=== PATIENT | male | born 1950 | race Caucasian/White ===

== ENCOUNTER 2023-04-15 21:30 | Inpatient (IN) | payer OTHER, MEDICARE ==
[~2023-04-15] VITALS: Ht 177.8 cm; Wt 70.5 kg
[2023-04-15] MEDS ORDERED: diltiazem 5mg/ml 5ml inj. IV ONE ×3 (21:48→21:50)
[2023-04-15] MEDS ORDERED: aspirin 81mg tab.chew PO ONE (21:50)
--- NOTE | 2023-04-15 22:10 | NUR ---
pt recieved 500mls ns from ems. ok per dr schaffer.
[2023-04-15 22:19] LABS: BASOPHILS % (AUTO) 0.5 % (0-1); EOSINOPHILS % (AUTO) 0.2 % (0-6); HEMATOCRIT 49.3 % (42.0-52.0); HEMOGLOBIN 15.9 g/dl (14.0-17.9); LYMPHOCYTES # (AUTO) 1.1 X10'3 (1.1-4.8); LYMPHOCYTES % (AUTO) 13.5 % (21-51); MEAN CORPUSCULAR HEMOGLOBIN 30.2 PG (27.0-31.0); MEAN CORPUSCULAR HGB CONC 32.2 g/dL (33.0-36.5); MEAN CORPUSCULAR VOLUME 93.9 FL (78-98); MEAN PLATELET VOLUME 10.5 FL (7.4-10.4); MONOCYTES # (AUTO) 0.8 X10'3 (0-0.9); MONOCYTES % (AUTO) 10.8 % (2-12); NEUTROPHILS # (AUTO) 5.9 X10'3 (1.8-7.7); PLATELET COUNT 118 X10'3 (140-440); RED BLOOD COUNT 5.25 X10'6 (4.70-6.10); RED CELL DISTRIBUTION WIDTH 14.8 % (11.5-14.5); WHITE BLOOD COUNT 7.8 X10'3 (4.5-11.0)
[2023-04-15 22:29] LABS: D-DIMER 11.03 MG/L FEU (0-0.50)
[2023-04-15 22:35] LABS: ALANINE AMINOTRANSFERASE 344 U/L (12-78); ALBUMIN 3.4 G/DL (3.4-5.0); ALBUMIN/GLOBULIN RATIO 1.2 (1.1-1.5); ALKALINE PHOSPHATASE 313 IU/L (46-116); ANION GAP 16 (8-16); ASPARTATE AMINO TRANSFERASE 284 U/L (10-37); BILIRUBIN,TOTAL 2.7 MG/DL (0.1-1.0); BLOOD UREA NITROGEN 33 MG/DL (7-18); BUN/CREATININE RATIO 16.8 (10.0-20.0); CALCIUM 8.9 MG/DL (8.5-10.1); CHLORIDE 105 MMOL/L (99-107); CREATININE 1.97 MG/DL (0.60-1.10); GLUCOSE 109 MG/DL (70-104); MAGNESIUM 2.1 MG/DL (1.5-2.4); POTASSIUM 4.3 MMOL/L (3.5-5.1); SODIUM 144 MMOL/L (135-145); TOTAL CARBON DIOXIDE 23.5 MMOL/L (24-32); TOTAL PROTEIN 6.3 G/DL (6.4-8.2); eGFR 33 ML/MIN
[2023-04-15] MEDS ORDERED: heparin 10,000 units/1 ML INJ IV ONE (22:55)
[2023-04-15] MEDS ORDERED: heparin 10,000 units/1 ML INJ IV PRN (23:00)
[2023-04-15] MEDS: heparin 25,000 UNIT/250ml bag 250 ML IV PRN (23:32)
[2023-04-15 23:54] LABS: ANISOCYTOSIS FEW; PLATELET ESTIMATE DECREASED; SCHISTOCYTES 1+
[2023-04-15 23:56] LABS: POLYCHROMASIA FEW
[2023-04-15 23:58] LABS: BURR CELLS 1+
[2023-04-16] VITALS (12 sets, daily range): BP systolic 84–125; BP diastolic 51–85
[2023-04-16] MEDS ORDERED: diphenhydrAMINE 50 mg/ml inj IV PRN (00:05)
[2023-04-16] MEDS ORDERED: acetaminophen 650mg rectal suppository RC PRN (00:05)
[2023-04-16] MEDS ORDERED: ondansetron/PF 4mg/2ml inj IV PRN (00:05)
[2023-04-16] MEDS ORDERED: ipratropium/albuterol 3ml nebule NEB PRN (00:05)
[2023-04-16] MEDS ORDERED: bisacodyl 10mg suppository rectal RC PRN (00:05)
[2023-04-16] MEDS ORDERED: magnesium hydroxide 30ml (MOM) UD suspension PO PRN (00:05)
[2023-04-16] MEDS ORDERED: diphenhydrAMINE 25mg capsule PO PRN (00:05)
[2023-04-16] MEDS ORDERED: acetaminophen 325mg tablet PO PRN ×2 (00:05)
[2023-04-16] MEDS ORDERED: mag hydrox/Alum hydrox/simeth 30ml oral suspension PO PRN (00:05)
[2023-04-16] MEDS ORDERED: ondansetron 4mg rapidly disintigrating tab PO PRN (00:05)
[2023-04-16] MEDS ORDERED: morphine 2 MG/ML inj. syringe IV PRN (00:05)
[2023-04-16] MEDS ORDERED: diltiazem-NS 100mg/100ml 100 ML IV SCH (00:20)
[2023-04-16] MEDS: normal saline 1000ml 1,000 ML IV SCH ×2 (00:37→12:54)
[2023-04-16] MEDS ORDERED: ATOR-2 PO (00:46)
[2023-04-16] MEDS ORDERED: TRAZ150T78 PO (00:46)
[2023-04-16] MEDS ORDERED: ASPI81TA52 PO (00:46)
[2023-04-16] MEDS ORDERED: AMI200T PO (00:46)
[2023-04-16] MEDS ORDERED: VENL150C4 PO (00:46)
[2023-04-16] MEDS ORDERED: LAMO150T2 PO (00:46)
[2023-04-16 01:54] LABS: GLUCOSE, URINE NEGATIVE (Neg); KETONES,URINE NEGATIVE (Neg); LEUKOCYTE ESTERASE ,URINE NEGATIVE (Neg); NITRITES, URINE NEGATIVE (Neg); OCCULT BLOOD,URINE SMALL (Neg); PROTEIN,URINE 30 mg/dl (Neg)
[2023-04-16 02:10] LABS: UA COLLECTION TYPE CLN CATCH MIDSTREAM
[2023-04-16 02:13] LABS: CLARITY,URINE SLIGHTLY CLOUDY (Clear); COLOR,URINE ORANGE (Yellow)
[2023-04-16 02:16] LABS: CELLULAR CAST 0-4 /LPF (NEGATIVE)
[2023-04-16 02:18] LABS: BACTERIA,URINE 1+ /HPF (Neg)
[2023-04-16 02:19] LABS: SQUAMOUS EPITHELIAL CELL,UR NONE SEEN /LPF (FEW)
[2023-04-16 02:20] LABS: MUCUS STRANDS MODERATE /LPF (Neg); RENAL CELLS, URINE FEW /HPF; TRANSITIONAL EPI CELLS,URINE MODERATE /HPF
[2023-04-16 02:47] LABS: HEMOGLOBIN A1C 6.3 % (4.5-6.2)
[2023-04-16 02:49] LABS: CREATINE KINASE 179 U/L (39-308); LIPASE 90 U/L (73-393); PHOSPHORUS 3.6 MG/DL (2.3-4.5)
--- NOTE | 2023-04-16 07:00 | NUR ---
Problems reprioritized. Patient report given, questions answered & plan of care reviewed with Neema HUERTA.
--- NOTE | 2023-04-16 07:02 | NUR ---
Patient in room PCU 3027. I have received report from DEANNA Merrill and had the opportunity to ask questions and assume patient care.
[2023-04-16] MEDS: pantoprazole 40mg Tablet.DR PO SCH (07:45)
[2023-04-16] MEDS ORDERED: atorvastatin 20mg tablet PO SCH (08:00)
[2023-04-16] MEDS: docusate sod 100mg capsule PO SCH ×2 (08:00→19:45)
--- NOTE | 2023-04-16 08:10 | NUR ---
Message: FYI: Pt in 3027B Gloria's aPTT is 134 after re-draw this AM. I stopped it per protocol for 120 minutes and will then decrease rate by 2 units per hr. Was 10 units will go to 8 units at 10 am when I re-start it. Thx. Castano, RN [phone]
[2023-04-16] MEDS: aspirin 81mg tab.chew PO SCH (08:52)
[2023-04-16] MEDS: metoprolol succinate 25mg (24-HOUR) SR. Tablet PO SCH (08:53)
[2023-04-16] MEDS: CefTRIAXone/D5W-Rocephin 1gm 50 ML IV SCH (08:54)
[2023-04-16] MEDS ORDERED: pneumococcal 23-VAL P-sac vacc 25 mcg/0.5ml vial IMVAC ONE (10:00)
[2023-04-16] MEDS: azithromycin/NS 500mg/250ml 250 ML IV SCH (10:42)
[2023-04-16] MEDS ORDERED: potassium Cl 40MEQ/1/2NS 520ml 520 ML IV PRN (11:15)
[2023-04-16] MEDS ORDERED: magnesium 2GM in 50ml NS 50 ML IV PRN (11:15)
[2023-04-16] MEDS ORDERED: magnesium 4gm in 100ml NS 100 ML IV PRN (11:15)
[2023-04-16] MEDS ORDERED: potassium Cl 20 mEq SR tablet PO PRN ×2 (11:15)
[2023-04-16] MEDS ORDERED: magnesium Cl slow-release 64mg tablet PO PRN (11:15)
--- NOTE | 2023-04-16 11:46 | NUR ---
Message: Pt in 3027B is diaphoretic, SOB and BP is 81/55. I am calling a rapid response right now. Omaira [phone]
--- NOTE | 2023-04-16 12:01 | NUR ---
Message: Please come to [id number] [facility] rapid called. SBP now [address] [facility] Transaction number: [id number]
--- NOTE | 2023-04-16 12:12 | NUR ---
Message: Please come to bedside of [id number] [facility] Transaction number: [id number]
[2023-04-16 12:21] LABS: ABG BASE EXCESS -7.4 mmol/L (-2.0-2.0); ABG HCO3 15.4 mmol/L (22.0-26.0); ABG OXYGEN SATURATION 98.3 % (94-97); ABG PCO2 (T) 25.1 mmHg (35.0-48.0); ABG PO2 (T) 127.4 mmHg (75.0-100.0); ALLEN'S TEST POSITIVE; FCOHb 0.1 % (0.0-3.9); FLOW 15 L/min; FMetHb 0.2 % (0.0-1.5); PATIENT TEMPERATURE 36.7; TOTAL HEMOGLOBIN 14.8 G/dl (14.0-17.9)
[2023-04-16] MEDS ORDERED: normal saline 1000ml 1,000 ML IV ONE (12:39)
[2023-04-16] MEDS ORDERED: normal saline 1000ml 3,000 ML IV ONE (12:40)
[2023-04-16] MEDS ORDERED: normal saline 1000ml 1,000 ML IV SCH (12:40)
[2023-04-16] MEDS ORDERED: LidoCAINE 2% Topical Jelly 11mL syringe TOP ONE (12:53)
--- NOTE | 2023-04-16 13:08 | NUR ---
Malnutrition consult: Pt reports 2-13 lb wt loss with decreased appetite/PO intake. Pt seen at bedside, states he has weighed 175 lbs for years so he believes that's what he most recently weighed with probable gradual 15 lb wt loss over the last two weeks making most recent wt 160 lbs. Current scaled wt is 155 lbs with no wt hx in EMR. Pt reports low appetite and PO intake GIZZARD PEELER secondary to decreased appetite, though does state his roommate fixed meals for him and he prepared food for himself as well. Pt currently on a regular diet, documented with 100% PO intake of first meal. Noted clavicles are present however pt unsure if this is normal or not. Pt with no documented significant decrease in muscle strength or edema. Given uncertainty of wt and PO intake GIZZARD PEELER pt currently lacks a minimum of two criteria for malnutrition. Pt denies food allergies though reports disliking beets, d/w dietary. Pt reports no issues chewing or swallowing though does report having a dry mouth. RD encouraged increasing water intake. Per pt LBM 3 days ago though denies feeling constipated. Pt declines nutrition intervention to assist with a BM and refused routine bowel care this morning. Pt provided with [employer] coupons and RD contact information and encouraged to reach out if needed. Will continue to follow and monitor s/s of malnutrition. Addendum: 04/16/23 at [address] Amended: Links added. Addendum: 04/16/23 at [address] Noted pt with A1c 6.3% with no PMH DM in EMR. Current A1c does not meet diagnostic criteria for diabetes per ADA guidelines.
[2023-04-16] MEDS: venlafaxine XR 75mg capsule (Q24H) PO SCH (15:28)
[2023-04-16] MEDS: amiodarone 200mg tablet PO SCH (15:28)
--- NOTE | 2023-04-16 19:04 | NUR ---
Patient in room PCU 3027. I have received report from DEANNA Mcnamara and had the opportunity to ask questions and assume patient care.
--- NOTE | 2023-04-16 19:09 | NUR ---
Patient in room PCU 3027. I have received report from DEANNA Castano and had the opportunity to ask questions and assume patient care.
[2023-04-16] MEDS: K and/or MAG REPLACEMENT MC SCH (19:38)
[2023-04-16] MEDS: traZODone 150mg tablet PO SCH (20:55)
[2023-04-16] MEDS ORDERED: temazepam 15mg capsule PO PRN (21:00)
[2023-04-17] VITALS (7 sets, daily range): BP systolic 85–115; BP diastolic 53–77
[2023-04-17 04:58] LABS: BASOPHILS % (AUTO) 0.5 % (0-1); EOSINOPHILS % (AUTO) 0.2 % (0-6); HEMATOCRIT 44.4 % (42.0-52.0); HEMOGLOBIN 14.4 g/dl (14.0-17.9); LYMPHOCYTES # (AUTO) 0.8 X10'3 (1.1-4.8); LYMPHOCYTES % (AUTO) 10.3 % (21-51); MEAN CORPUSCULAR HEMOGLOBIN 30.3 PG (27.0-31.0); MEAN CORPUSCULAR HGB CONC 32.4 g/dL (33.0-36.5); MEAN CORPUSCULAR VOLUME 93.6 FL (78-98); MEAN PLATELET VOLUME 10.3 FL (7.4-10.4); MONOCYTES # (AUTO) 0.9 X10'3 (0-0.9); MONOCYTES % (AUTO) 11.1 % (2-12); NEUTROPHILS # (AUTO) 6.4 X10'3 (1.8-7.7); NEUTROPHILS % (AUTO) 77.9 % (42-75); PLATELET COUNT 111 X10'3 (140-440); RED BLOOD COUNT 4.74 X10'6 (4.70-6.10); RED CELL DISTRIBUTION WIDTH 15.3 % (11.5-14.5); WHITE BLOOD COUNT 8.2 X10'3 (4.5-11.0)
[2023-04-17 05:04] LABS: ALANINE AMINOTRANSFERASE 250 U/L (12-78); ALBUMIN 2.8 G/DL (3.4-5.0); ALBUMIN/GLOBULIN RATIO 1.1 (1.1-1.5); ALKALINE PHOSPHATASE 248 IU/L (46-116); ANION GAP 11 (8-16); ASPARTATE AMINO TRANSFERASE 148 U/L (10-37); BILIRUBIN,TOTAL 1.2 MG/DL (0.1-1.0); BLOOD UREA NITROGEN 29 MG/DL (7-18); BUN/CREATININE RATIO 20.1 (10.0-20.0); CALCIUM 8.2 MG/DL (8.5-10.1); CHLORIDE 109 MMOL/L (99-107); CHOL/HDL RATIO 2.7 (0.00-4.99); CHOLESTEROL 84 MG/DL (0-200); CREATININE 1.44 MG/DL (0.60-1.10); GLUCOSE 85 MG/DL (70-104); HDL CHOLESTEROL 31 MG/DL (35-60); LDL CHOLESTEROL 45 MG/DL (50-100); MAGNESIUM 1.9 MG/DL (1.5-2.4); PHOSPHORUS 3.4 MG/DL (2.3-4.5); POTASSIUM 4.1 MMOL/L (3.5-5.1); SODIUM 141 MMOL/L (135-145); TOTAL CARBON DIOXIDE 21.4 MMOL/L (24-32); TOTAL PROTEIN 5.4 G/DL (6.4-8.2); TRIGLYCERIDES 30 MG/DL (20-135); eGFR 48 ML/MIN
[2023-04-17] MEDS: heparin 25,000 UNIT/250ml bag 250 ML IV PRN (05:20)
--- NOTE | 2023-04-17 06:40 | NUR ---
Problems reprioritized. Patient report given, questions answered & plan of care reviewed with Clare.
--- NOTE | 2023-04-17 07:00 | NUR ---
Patient in room PCU 3027. I have received report from DEANNA BURROUGHS, and had the opportunity to ask questions and assume patient care.
[2023-04-17] MEDS ORDERED: aspirin 81mg, enteric-coated 1 TAB TABLET.DR PO SCH (08:00)
[2023-04-17] MEDS: K and/or MAG REPLACEMENT MC SCH ×2 (08:00→20:00)
[2023-04-17] MEDS: CefTRIAXone/D5W-Rocephin 1gm 50 ML IV SCH (09:03)
[2023-04-17] MEDS: aspirin 81mg tab.chew PO SCH (09:06)
[2023-04-17] MEDS: lamoTRIgine 100mg tablet PO SCH (09:06)
[2023-04-17] MEDS: metoprolol succinate 25mg (24-HOUR) SR. Tablet PO SCH (09:07)
[2023-04-17] MEDS: amiodarone 200mg tablet PO SCH (09:08)
[2023-04-17] MEDS: pantoprazole 40mg Tablet.DR PO SCH (09:09)
[2023-04-17] MEDS: venlafaxine XR 75mg capsule (Q24H) PO SCH (09:09)
[2023-04-17] MEDS: azithromycin/NS 500mg/250ml 250 ML IV SCH (10:39)
--- NOTE | 2023-04-17 11:47 | NUR ---
PAGE SENT 0563L, BONNIE GEORGE, PT HAVING INCREASED DIFFICULTY BREATHING. 91%, 3L NC. PLEASE COME AND ASSESS. THANK YOU, JACKIE [phone]
[2023-04-17] MEDS: normal saline 1000ml 1,000 ML IV SCH ×3 (11:54→23:21)
--- NOTE | 2023-04-17 14:50 | NUR ---
PAGE SENT PAGER ID: [phone] MESSAGE: [id number] BONNIE GEORGE, MAYBE DECREASE THE PT'S AM METOPROLOL? BP WAS APPROPRIATE TO GIVE, BUT HIS BP HAS BEEN LOW. IT'S IMPROVING, 91/58. THANK YOU, JACKIE James [phone]
--- NOTE | 2023-04-17 18:50 | NUR ---
Patient in room PCU 3027. I have received report from Inocencia HUERTA and had the opportunity to ask questions and assume patient care.
--- NOTE | 2023-04-17 18:59 | NUR ---
Problems reprioritized. Patient report given, questions answered & plan of care reviewed with DEANNA SHARMA.
[2023-04-17] MEDS: atorvastatin 20mg tablet PO SCH (20:16)
[2023-04-17] MEDS: traZODone 150mg tablet PO SCH (20:16)
--- NOTE | 2023-04-17 22:15 | NUR ---
Ptt RESULT = 47. nO CHANGES MADE. New lab scheduled for 0764
--- NOTE | 2023-04-17 23:13 | NUR ---
250cc bolus given for lower bps of systollic in 80's.
[2023-04-18] VITALS (7 sets, daily range): BP systolic 88–116; BP diastolic 56–78
[2023-04-18 04:53] LABS: BASOPHILS % (AUTO) 0.3 % (0-1); EOSINOPHILS # (AUTO) 0.1 X10'3 (0-0.9); EOSINOPHILS % (AUTO) 0.7 % (0-6); HEMATOCRIT 40.7 % (42.0-52.0); HEMOGLOBIN 13.3 g/dl (14.0-17.9); LYMPHOCYTES # (AUTO) 0.8 X10'3 (1.1-4.8); LYMPHOCYTES % (AUTO) 11.9 % (21-51); MEAN CORPUSCULAR HEMOGLOBIN 30.6 PG (27.0-31.0); MEAN CORPUSCULAR HGB CONC 32.7 g/dL (33.0-36.5); MEAN CORPUSCULAR VOLUME 93.7 FL (78-98); MEAN PLATELET VOLUME 10.2 FL (7.4-10.4); MONOCYTES # (AUTO) 0.7 X10'3 (0-0.9); MONOCYTES % (AUTO) 9.4 % (2-12); NEUTROPHILS # (AUTO) 5.5 X10'3 (1.8-7.7); NEUTROPHILS % (AUTO) 77.7 % (42-75); PLATELET COUNT 107 X10'3 (140-440); RED BLOOD COUNT 4.35 X10'6 (4.70-6.10); RED CELL DISTRIBUTION WIDTH 15.5 % (11.5-14.5); WHITE BLOOD COUNT 7.1 X10'3 (4.5-11.0)
[2023-04-18 05:05] LABS: ALANINE AMINOTRANSFERASE 192 U/L (12-78); ALBUMIN 2.4 G/DL (3.4-5.0); ALKALINE PHOSPHATASE 207 IU/L (46-116); ANION GAP 9 (8-16); ASPARTATE AMINO TRANSFERASE 97 U/L (10-37); BILIRUBIN,TOTAL 1.1 MG/DL (0.1-1.0); BLOOD UREA NITROGEN 25 MG/DL (7-18); CALCIUM 7.8 MG/DL (8.5-10.1); CHLORIDE 111 MMOL/L (99-107); CREATININE 1.19 MG/DL (0.60-1.10); GLUCOSE 85 MG/DL (70-104); MAGNESIUM 1.8 MG/DL (1.5-2.4); PHOSPHORUS 3.3 MG/DL (2.3-4.5); POTASSIUM 3.9 MMOL/L (3.5-5.1); SODIUM 143 MMOL/L (135-145); TOTAL CARBON DIOXIDE 22.6 MMOL/L (24-32); TOTAL PROTEIN 4.8 G/DL (6.4-8.2); eGFR 60 ML/MIN
--- NOTE | 2023-04-18 05:15 | NUR ---
0430 PTT lab result = 56 (within therapeutic range) so therefore no change in rate.
--- NOTE | 2023-04-18 07:00 | NUR ---
Problems reprioritized. Patient report given, questions answered & plan of care reviewed with Inocencia HUERTA.
--- NOTE | 2023-04-18 07:16 | NUR ---
Patient in room PCU 3027. I have received report from DEANNA SHARMA, and had the opportunity to ask questions and assume patient care.
[2023-04-18] MEDS: K and/or MAG REPLACEMENT MC SCH ×2 (08:00→20:00)
[2023-04-18] MEDS: azithromycin/NS 500mg/250ml 250 ML IV SCH (08:59)
[2023-04-18] MEDS ORDERED: morphine 2 MG/ML inj. syringe IV PRN (09:35)
[2023-04-18] MEDS: normal saline 1000ml 1,000 ML IV SCH (09:40)
[2023-04-18] MEDS: CefTRIAXone/D5W-Rocephin 1gm 50 ML IV SCH (10:47)
[2023-04-18] MEDS: metoprolol tartrate 12.5mg (1/2 tablet) PO SCH (10:51)
[2023-04-18] MEDS: pantoprazole 40mg Tablet.DR PO SCH (10:51)
[2023-04-18] MEDS: aspirin 81mg tab.chew PO SCH (10:52)
[2023-04-18] MEDS: venlafaxine XR 75mg capsule (Q24H) PO SCH (10:52)
[2023-04-18] MEDS: lamoTRIgine 100mg tablet PO SCH (10:57)
--- NOTE | 2023-04-18 12:06 | NUR ---
PAGE SENT PAGER ID: [phone] MESSAGE: [id number], BONNIE GEORGE, SOFT CHEW DIET OKAYED BY ROSENDO, DO I ENTER ORDERS UNDER YOUR NAME? HIS NAME? NOBODY HAS TOLD US. THANK YOU, JACKIE [phone]
[2023-04-18] MEDS: amiodarone 200mg tablet PO SCH (12:20)
--- NOTE | 2023-04-18 13:32 | NUR ---
[facility] SOFT DIET WAS MISTAKENLY ENTERED UNDER DR. BEARD, THE WRONG PROVIDER. ORDER REENTERED UNDER DR. MG, THE PT'S HOSPITALIST.
--- NOTE | 2023-04-18 16:32 | NUR ---
PAGE SENT AGER ID: [phone] MESSAGE: [id number], BONNIE GEORGE, PT C/O SORE THROAT. TONGUE BEEFY RED, THROAT READ. THRUSH? NYSTATIN SWISH? THANK YOU, JACKIE [phone]
--- NOTE | 2023-04-18 18:50 | NUR ---
Patient in room PCU 3027. I have received report from Inocencia HUERTA and had the opportunity to ask questions and assume patient care.
--- NOTE | 2023-04-18 19:01 | NUR ---
Problems reprioritized. Patient report given, questions answered & plan of care reviewed with DEANNA FULLER.
[2023-04-18] MEDS: apixaban 5mg tablet PO SCH (21:19)
[2023-04-18] MEDS: atorvastatin 20mg tablet PO SCH (21:20)
[2023-04-18] MEDS: nystatin 500,000 unit/5ML UD oral suspension PO SCH (21:21)
[2023-04-18] MEDS: traZODone 150mg tablet PO SCH (21:21)
[2023-04-18 21:26] LABS: OSMOLALITY 304 MOSM/K (280-300)
[2023-04-19] VITALS (8 sets, daily range): BP systolic 94–167; BP diastolic 53–85
--- NOTE | 2023-04-19 05:47 | NUR ---
At around 1925 last night, [employer] informed this nurse that patient was in A-flutter. EKG was obtained and Md informed. At this time VS were 97.8, 131,18,100/66,94% on 3L. Urine out put at this time was 100cc. order to bolus 250cc, and then if no increase in systolic to over 90, bolus another 250. Then place on maintenance 70cc/hr. After first 250cc, systolic went up to 96/72. MD had also stated to give 15mg cardizem IV if needed. Cardizem not pushed. Urine output after 2 hrs + 75cc. Patient has not had any other episodes since.
[2023-04-19 05:56] LABS: ALANINE AMINOTRANSFERASE 164 U/L (12-78); ALBUMIN 2.6 G/DL (3.4-5.0); ALKALINE PHOSPHATASE 208 IU/L (46-116); ANION GAP 8 (8-16); ASPARTATE AMINO TRANSFERASE 72 U/L (10-37); BILIRUBIN,TOTAL 1.1 MG/DL (0.1-1.0); BLOOD UREA NITROGEN 23 MG/DL (7-18); BUN/CREATININE RATIO 18.3 (10.0-20.0); CALCIUM 8.6 MG/DL (8.5-10.1); CHLORIDE 109 MMOL/L (99-107); CREATININE 1.26 MG/DL (0.60-1.10); GLUCOSE 93 MG/DL (70-104); MAGNESIUM 1.8 MG/DL (1.5-2.4); PHOSPHORUS 3.2 MG/DL (2.3-4.5); POTASSIUM 4.1 MMOL/L (3.5-5.1); SODIUM 143 MMOL/L (135-145); TOTAL CARBON DIOXIDE 25.7 MMOL/L (24-32); TOTAL PROTEIN 5.3 G/DL (6.4-8.2); eGFR 56 ML/MIN
[2023-04-19 06:10] LABS: BASOPHILS # (AUTO) 0.1 X10'3 (0-0.2); BASOPHILS % (AUTO) 1.4 % (0-1); EOSINOPHILS # (AUTO) 0.1 X10'3 (0-0.9); EOSINOPHILS % (AUTO) 0.8 % (0-6); HEMOGLOBIN 14.4 g/dl (14.0-17.9); LYMPHOCYTES # (AUTO) 0.6 X10'3 (1.1-4.8); LYMPHOCYTES % (AUTO) 8.7 % (21-51); MEAN CORPUSCULAR HEMOGLOBIN 30.2 PG (27.0-31.0); MEAN CORPUSCULAR HGB CONC 32.1 g/dL (33.0-36.5); MEAN CORPUSCULAR VOLUME 93.8 FL (78-98); MONOCYTES # (AUTO) 0.4 X10'3 (0-0.9); MONOCYTES % (AUTO) 6.1 % (2-12); NEUTROPHILS # (AUTO) 5.7 X10'3 (1.8-7.7); PLATELET COUNT 122 X10'3 (140-440); RED BLOOD COUNT 4.79 X10'6 (4.70-6.10); RED CELL DISTRIBUTION WIDTH 15.5 % (11.5-14.5); WHITE BLOOD COUNT 6.9 X10'3 (4.5-11.0)
--- NOTE | 2023-04-19 07:08 | NUR ---
Patient in room PCU 3027. I have received report from DEANNA FULLER, and had the opportunity to ask questions and assume patient care.
--- NOTE | 2023-04-19 07:14 | NUR ---
Problems reprioritized. Patient report given, questions answered & plan of care reviewed with Inocencia HUERTA.
[2023-04-19 07:40] LABS: CLARITY,URINE CLEAR (Clear); COLOR,URINE YELLOW (Yellow); GLUCOSE, URINE NEGATIVE (Neg); KETONES,URINE NEGATIVE (Neg); LEUKOCYTE ESTERASE ,URINE NEGATIVE (Neg); NITRITES, URINE NEGATIVE (Neg); OCCULT BLOOD,URINE MODERATE (Neg); PH,URINE 5.5 (4.8-8.0); PROTEIN,URINE TRACE mg/dl (Neg)
[2023-04-19 07:54] LABS: UA COLLECTION TYPE FOLEY CATH
[2023-04-19 07:55] LABS: WBC,URINE 0-4 /HPF (0-4)
[2023-04-19 07:56] LABS: BACTERIA,URINE 1+ /HPF (Neg); SQUAMOUS EPITHELIAL CELL,UR FEW /LPF (FEW)
[2023-04-19 07:57] LABS: URIC ACID CRYSTALS FEW /HPF (NEGATIVE)
[2023-04-19] MEDS: nystatin 500,000 unit/5ML UD oral suspension PO SCH ×3 (08:00→20:16)
[2023-04-19] MEDS: K and/or MAG REPLACEMENT MC SCH ×2 (08:00→19:30)
[2023-04-19] MEDS: CefTRIAXone/D5W-Rocephin 1gm 50 ML IV SCH (09:03)
[2023-04-19] MEDS: azithromycin 250mg tablet PO SCH (09:04)
[2023-04-19] MEDS: venlafaxine XR 75mg capsule (Q24H) PO SCH (09:04)
[2023-04-19] MEDS: lamoTRIgine 25mg tablet PO SCH (09:05)
[2023-04-19] MEDS: aspirin 81mg tab.chew PO SCH (09:05)
[2023-04-19] MEDS: metoprolol tartrate 12.5mg (1/2 tablet) PO SCH (09:05)
[2023-04-19] MEDS: pantoprazole 40mg Tablet.DR PO SCH (09:05)
[2023-04-19] MEDS: amiodarone 200mg tablet PO SCH (09:06)
[2023-04-19] MEDS: apixaban 5mg tablet PO SCH ×2 (09:06→20:13)
[2023-04-19] MEDS: lamoTRIgine 100mg tablet PO SCH (13:13)
[2023-04-19] MEDS ORDERED: furosemide 20 MG/2 ML vial IV ONE (16:20)
--- NOTE | 2023-04-19 18:25 | NUR ---
Problems reprioritized. Patient report given, questions answered & plan of care reviewed with DEANNA FULLER.
--- NOTE | 2023-04-19 18:32 | NUR ---
Patient in room PCU 3027. I have received report from Inocencia HUERTA and had the opportunity to ask questions and assume patient care.
[2023-04-19] MEDS: traZODone 150mg tablet PO SCH (20:13)
[2023-04-19] MEDS: atorvastatin 20mg tablet PO SCH (20:14)
--- NOTE | 2023-04-19 22:00 | NUR ---
Patient's sister Elva called for an update. Wanted to know if he was getting any type of protein supplement. Will pass on to day shift to ask MD for, as currently pt. is still not eating a whole lot<25%.
[2023-04-20] VITALS (10 sets, daily range): BP systolic 88–125; BP diastolic 52–85
[2023-04-20] MEDS: normal saline 1000ml 1,000 ML IV SCH (00:28)
[2023-04-20 06:20] LABS: BASOPHILS # (AUTO) 0.1 X10'3 (0-0.2); BASOPHILS % (AUTO) 0.6 % (0-1); EOSINOPHILS # (AUTO) 0.1 X10'3 (0-0.9); EOSINOPHILS % (AUTO) 0.8 % (0-6); HEMATOCRIT 44.4 % (42.0-52.0); HEMOGLOBIN 14.5 g/dl (14.0-17.9); LYMPHOCYTES # (AUTO) 0.9 X10'3 (1.1-4.8); LYMPHOCYTES % (AUTO) 9.4 % (21-51); MEAN CORPUSCULAR HEMOGLOBIN 30.4 PG (27.0-31.0); MEAN CORPUSCULAR HGB CONC 32.6 g/dL (33.0-36.5); MEAN CORPUSCULAR VOLUME 93.4 FL (78-98); MEAN PLATELET VOLUME 10.3 FL (7.4-10.4); MONOCYTES # (AUTO) 0.9 X10'3 (0-0.9); MONOCYTES % (AUTO) 9.9 % (2-12); NEUTROPHILS # (AUTO) 7.3 X10'3 (1.8-7.7); NEUTROPHILS % (AUTO) 79.3 % (42-75); PLATELET COUNT 143 X10'3 (140-440); RED BLOOD COUNT 4.76 X10'6 (4.70-6.10); RED CELL DISTRIBUTION WIDTH 15.6 % (11.5-14.5); WHITE BLOOD COUNT 9.2 X10'3 (4.5-11.0)
[2023-04-20 06:33] LABS: ALANINE AMINOTRANSFERASE 125 U/L (12-78); ALBUMIN 2.4 G/DL (3.4-5.0); ALBUMIN/GLOBULIN RATIO 0.8 (1.1-1.5); ALKALINE PHOSPHATASE 185 IU/L (46-116); ANION GAP 8 (8-16); BILIRUBIN,TOTAL 1.1 MG/DL (0.1-1.0); BLOOD UREA NITROGEN 19 MG/DL (7-18); BUN/CREATININE RATIO 18.4 (10.0-20.0); CALCIUM 8.3 MG/DL (8.5-10.1); CHLORIDE 110 MMOL/L (99-107); CREATININE 1.03 MG/DL (0.60-1.10); GLUCOSE 96 MG/DL (70-104); MAGNESIUM 1.9 MG/DL (1.5-2.4); SODIUM 141 MMOL/L (135-145); TOTAL CARBON DIOXIDE 23.2 MMOL/L (24-32); TOTAL PROTEIN 5.3 G/DL (6.4-8.2); eGFR 71 ML/MIN
[2023-04-20 06:36] LABS: ASPARTATE AMINO TRANSFERASE 53 U/L (10-37); PHOSPHORUS 2.8 MG/DL (2.3-4.5); POTASSIUM 4.2 MMOL/L (3.5-5.1)
--- NOTE | 2023-04-20 07:00 | NUR ---
Problems reprioritized. Patient report given, questions answered & plan of care reviewed with Benigno RN.
--- NOTE | 2023-04-20 07:03 | NUR ---
Patient in room U 3027. I have received report from Janie and had the opportunity to ask questions and assume patient care. Addendum: 04/20/23 at 0703 by Benigno Conde RN Amended: Links added.
[2023-04-20] MEDS: K and/or MAG REPLACEMENT MC SCH ×2 (08:00→19:02)
[2023-04-20] MEDS: CefTRIAXone/D5W-Rocephin 1gm 50 ML IV SCH (08:06)
[2023-04-20] MEDS: nystatin 500,000 unit/5ML UD oral suspension PO SCH ×3 (08:07→21:56)
[2023-04-20] MEDS: apixaban 5mg tablet PO SCH ×2 (08:07→20:22)
[2023-04-20] MEDS: pantoprazole 40mg Tablet.DR PO SCH (08:07)
[2023-04-20] MEDS: venlafaxine XR 75mg capsule (Q24H) PO SCH (08:07)
[2023-04-20] MEDS: lamoTRIgine 100mg tablet PO SCH (08:08)
[2023-04-20] MEDS: aspirin 81mg tab.chew PO SCH (08:08)
[2023-04-20] MEDS: lamoTRIgine 25mg tablet PO SCH (08:08)
[2023-04-20] MEDS: azithromycin 250mg tablet PO SCH (08:09)
[2023-04-20] MEDS: amiodarone 200mg tablet PO SCH ×3 (08:09→20:21)
[2023-04-20] MEDS: metoprolol tartrate 12.5mg (1/2 tablet) PO SCH (08:54)
[2023-04-20] MEDS ORDERED: LIDOcaine 1% 30ml preserv. free vial ONE (09:08)
--- NOTE | 2023-04-20 10:21 | NUR ---
Thoracentesis complete Left 900ml and right 1650ml removed, ph and labs sent. Tolerated well.
[2023-04-20 10:48] LABS: BFSOURCE PLEURAL FLD
[2023-04-20] MEDS ORDERED: normal saline 500ml IV soln 500 ML IV ONE (11:20)
[2023-04-20 11:25] LABS: GLUCOSE,BODY FLUID 120 MG/DL; LDH,BODY FLUID 68 U/L
[2023-04-20] MEDS ORDERED: amiodarone 150mg/dext, iso-os 100 ML IV ONE (11:30)
[2023-04-20 12:01] LABS: TOTAL PROTEIN,BODY FLUID < 2.0 G/DL
[2023-04-20] MEDS ORDERED: digoxin 250mcg/ml 2ml ampule IV ONE ×2 (12:45→18:00)
[2023-04-20 12:56] LABS: BFAPPEAR HAZY; LYMPHOCYTES,BODY FLUID 40 %; MONOCYTES,BODY FLUID 37 %; NEUTROPHILS,BODY FLUID 23 %
[2023-04-20 12:57] LABS: BF MESOTHELIAL CELLS MODERATE; BF RBC COUNT 86 /CU MM; BF WBC COUNT 86 /CU MM (0-1000); BFCOLOR YELLOW; BFVOLUME 42 ML
[2023-04-20] MEDS: lactose-reduced food (Ensure Enlive) - 237ml bottle PO SCH (18:00)
--- NOTE | 2023-04-20 18:17 | NUR ---
Problems reprioritized. Patient report given, questions answered & plan of care reviewed with Luisito. Addendum: 04/20/23 at 1827 by Benigno Conde RN Amended: Links added.
--- NOTE | 2023-04-20 18:51 | NUR ---
Patient in room PCU 3027. I have received report from [facility] and had the opportunity to ask questions and assume patient care.
[2023-04-20] MEDS: atorvastatin 20mg tablet PO SCH (20:21)
[2023-04-20] MEDS: traZODone 150mg tablet PO SCH (20:22)
[2023-04-21] VITALS (8 sets, daily range): BP systolic 96–126; BP diastolic 53–86
--- NOTE | 2023-04-21 00:09 | NUR ---
Tele showing BP of 68/33. Manual BP showed 100/60. HR ranging between 110 and 120. MD advised of HR as he was in PCU.
[2023-04-21] MEDS: normal saline 1000ml 1,000 ML IV SCH (05:11)
--- NOTE | 2023-04-21 06:27 | NUR ---
Patient in room PCU 3027. I have received report from Mj and had the opportunity to ask questions and assume patient care. Addendum: 04/21/23 at 0628 by Benigno Conde RN Amended: Links added.
--- NOTE | 2023-04-21 06:29 | NUR ---
Problems reprioritized. Patient report given, questions answered & plan of care reviewed with Benigno.
[2023-04-21 07:00] LABS: ALANINE AMINOTRANSFERASE 98 U/L (12-78); ALBUMIN 1.7 G/DL (3.4-5.0); ALBUMIN/GLOBULIN RATIO 0.6 (1.1-1.5); ALKALINE PHOSPHATASE 156 IU/L (46-116); ANION GAP 9 (8-16); ASPARTATE AMINO TRANSFERASE 52 U/L (10-37); BILIRUBIN,TOTAL 1.1 MG/DL (0.1-1.0); BLOOD UREA NITROGEN 15 MG/DL (7-18); BUN/CREATININE RATIO 14.3 (10.0-20.0); CALCIUM 7.9 MG/DL (8.5-10.1); CHLORIDE 109 MMOL/L (99-107); CREATININE 1.05 MG/DL (0.60-1.10); GLUCOSE 83 MG/DL (70-104); MAGNESIUM 1.8 MG/DL (1.5-2.4); PHOSPHORUS 2.6 MG/DL (2.3-4.5); POTASSIUM 3.8 MMOL/L (3.5-5.1); SODIUM 139 MMOL/L (135-145); TOTAL CARBON DIOXIDE 21.4 MMOL/L (24-32); TOTAL PROTEIN 4.7 G/DL (6.4-8.2); eGFR 69 ML/MIN
[2023-04-21 07:02] LABS: BASOPHILS % (AUTO) 0.2 % (0-1); EOSINOPHILS # (AUTO) 0.1 X10'3 (0-0.9); EOSINOPHILS % (AUTO) 0.8 % (0-6); HEMATOCRIT 41.4 % (42.0-52.0); LYMPHOCYTES # (AUTO) 0.9 X10'3 (1.1-4.8); LYMPHOCYTES % (AUTO) 10.1 % (21-51); MEAN CORPUSCULAR HEMOGLOBIN 29.8 PG (27.0-31.0); MEAN CORPUSCULAR HGB CONC 31.4 g/dL (33.0-36.5); MEAN PLATELET VOLUME 9.3 FL (7.4-10.4); MONOCYTES # (AUTO) 1.1 X10'3 (0-0.9); MONOCYTES % (AUTO) 12.6 % (2-12); NEUTROPHILS # (AUTO) 6.5 X10'3 (1.8-7.7); NEUTROPHILS % (AUTO) 76.3 % (42-75); PLATELET COUNT 115 X10'3 (140-440); RED BLOOD COUNT 4.36 X10'6 (4.70-6.10); RED CELL DISTRIBUTION WIDTH 15.5 % (11.5-14.5); WHITE BLOOD COUNT 8.5 X10'3 (4.5-11.0)
[2023-04-21] MEDS: K and/or MAG REPLACEMENT MC SCH ×2 (08:00→19:55)
[2023-04-21] MEDS: metoprolol tartrate 12.5mg (1/2 tablet) PO SCH ×3 (08:03→20:07)
[2023-04-21] MEDS: amiodarone 200mg tablet PO SCH ×2 (08:03→20:09)
[2023-04-21] MEDS: lamoTRIgine 100mg tablet PO SCH (08:03)
[2023-04-21] MEDS: lamoTRIgine 25mg tablet PO SCH (08:03)
[2023-04-21] MEDS: venlafaxine XR 75mg capsule (Q24H) PO SCH (08:04)
[2023-04-21] MEDS: apixaban 5mg tablet PO SCH ×2 (08:04→20:07)
[2023-04-21] MEDS: pantoprazole 40mg Tablet.DR PO SCH (08:04)
[2023-04-21] MEDS: aspirin 81mg tab.chew PO SCH (08:04)
[2023-04-21] MEDS: CefTRIAXone/D5W-Rocephin 1gm 50 ML IV SCH (08:04)
[2023-04-21] MEDS: azithromycin 250mg tablet PO SCH (08:04)
[2023-04-21] MEDS: nystatin 500,000 unit/5ML UD oral suspension PO SCH ×3 (08:05→20:08)
[2023-04-21] MEDS: lactose-reduced food (Ensure Enlive) - 237ml bottle PO SCH ×3 (08:06→18:00)
[2023-04-21] MEDS ORDERED: digoxin 250mcg/ml 2ml ampule IV ONE ×2 (10:20→16:20)
--- NOTE | 2023-04-21 12:47 | NUR ---
Initial: Pt admit for Afib, acute renal failure, pneumonia, acute hypoxemic respiratory failure, bilateral pleural effusion, and acute on chronic CKD. Pt thoracentesis procedure done 04/20 removing about 1650mL of fluid per EMR. Pt awake and alert during time of visit.Per discussion with RN, pt is doing better today and appetite is improving today , noted EMR PO documentation of 75-100% of breakfast today. Pt currently on regular easy to chew/soft per physician due to documentation of mouth sores per EMR noted oral nystatin due to suspected oral thrush. Current average PO intake of 27% x 16 meals meeting 38% of estimated kcal and 32% of protein needs. Noted active Ensure TID order on 04/19 in EMR but pt had not been getting it per pt and RN. Notified kitchen of order, pt will be getting a chocolate Ensure starting at lunch today per pt preference. Obtained food prefences such as cup of ice for Ensure, orange juice and brown sugare with breakfast, communicated with dietary. LBM on 04/14 FLORAL SPECIALIST given MoM PRN once on 04/19 per EMR. Pt may benefit from routine bowel care, discussed with RN. Will continue to monitor. Recommendations: 1.continue easy to chew/soft diet per physician due to mouth sores 2.continue Ensure Enlive chocolate with ice TIDWM 3.honor food preferences; orange and brown sugar WB 4. routine bowel care; discussed with RN 5. Weekly wts Addendum: 04/21/23 at 1249 by Juliet Aldridge Intern RD Amended: Links added. Addendum: 04/21/23 at [address] I have reviewed and agree with note.
--- NOTE | 2023-04-21 18:33 | NUR ---
Problems reprioritized. Patient report given, questions answered & plan of care reviewed with Sharri . Addendum: 04/21/23 at 1834 by Benigno Conde RN Amended: Links added.
[2023-04-21] MEDS: atorvastatin 20mg tablet PO SCH (20:09)
[2023-04-21] MEDS: traZODone 150mg tablet PO SCH (20:09)
[2023-04-22 02:00] VITALS: BP 127/79
[2023-04-22 06:06] VITALS: BP 92/59
--- NOTE | 2023-04-22 06:33 | NUR ---
Problems reprioritized. Patient report given, questions answered & plan of care reviewed with Gee HUERTA. Addendum: 04/22/23 at 0634 by Sharri Garza RN Amended: Links added.
[2023-04-22 07:44] LABS: BASOPHILS % (AUTO) 0.2 % (0-1); EOSINOPHILS # (AUTO) 0.1 X10'3 (0-0.9); EOSINOPHILS % (AUTO) 1.3 % (0-6); HEMATOCRIT 42.9 % (42.0-52.0); HEMOGLOBIN 13.8 g/dl (14.0-17.9); LYMPHOCYTES # (AUTO) 0.9 X10'3 (1.1-4.8); LYMPHOCYTES % (AUTO) 11.4 % (21-51); MEAN CORPUSCULAR HEMOGLOBIN 30.1 PG (27.0-31.0); MEAN CORPUSCULAR HGB CONC 32.1 g/dL (33.0-36.5); MEAN CORPUSCULAR VOLUME 93.8 FL (78-98); MEAN PLATELET VOLUME 9.5 FL (7.4-10.4); MONOCYTES # (AUTO) 0.9 X10'3 (0-0.9); MONOCYTES % (AUTO) 11.3 % (2-12); NEUTROPHILS # (AUTO) 5.8 X10'3 (1.8-7.7); NEUTROPHILS % (AUTO) 75.8 % (42-75); PLATELET COUNT 154 X10'3 (140-440); RED BLOOD COUNT 4.58 X10'6 (4.70-6.10); RED CELL DISTRIBUTION WIDTH 15.3 % (11.5-14.5); WHITE BLOOD COUNT 7.7 X10'3 (4.5-11.0)
[2023-04-22] MEDS: lactose-reduced food (Ensure Enlive) - 237ml bottle PO SCH ×3 (08:00→18:00)
[2023-04-22 08:13] LABS: ALANINE AMINOTRANSFERASE 126 U/L (12-78); ALBUMIN 2.2 G/DL (3.4-5.0); ALBUMIN/GLOBULIN RATIO 0.7 (1.1-1.5); ALKALINE PHOSPHATASE 184 IU/L (46-116); ANION GAP 7 (8-16); ASPARTATE AMINO TRANSFERASE 91 U/L (10-37); BILIRUBIN,TOTAL 1.1 MG/DL (0.1-1.0); BLOOD UREA NITROGEN 13 MG/DL (7-18); BUN/CREATININE RATIO 16.9 (10.0-20.0); CALCIUM 8.3 MG/DL (8.5-10.1); CHLORIDE 105 MMOL/L (99-107); CREATININE 0.77 MG/DL (0.60-1.10); GLUCOSE 84 MG/DL (70-104); MAGNESIUM 1.9 MG/DL (1.5-2.4); PHOSPHORUS 2.8 MG/DL (2.3-4.5); POTASSIUM 4.2 MMOL/L (3.5-5.1); SODIUM 141 MMOL/L (135-145); TOTAL CARBON DIOXIDE 29.3 MMOL/L (24-32); TOTAL PROTEIN 5.4 G/DL (6.4-8.2); eGFR > 90 ML/MIN
[2023-04-22] MEDS: K and/or MAG REPLACEMENT MC SCH ×2 (09:15→20:00)
[2023-04-22] MEDS: normal saline 1000ml 1,000 ML IV SCH (09:40)
[2023-04-22] MEDS: metoprolol tartrate 12.5mg (1/2 tablet) PO SCH (09:50)
[2023-04-22] MEDS: pantoprazole 40mg Tablet.DR PO SCH (09:50)
[2023-04-22] MEDS: aspirin 81mg tab.chew PO SCH (09:51)
[2023-04-22] MEDS: apixaban 5mg tablet PO SCH ×2 (09:51→22:58)
[2023-04-22] MEDS: EMPAGLIFLOZIN 10 MG TABLET PO SCH (09:51)
[2023-04-22] MEDS: lamoTRIgine 100mg tablet PO SCH (09:51)
[2023-04-22] MEDS: lamoTRIgine 25mg tablet PO SCH (09:51)
[2023-04-22] MEDS: nystatin 500,000 unit/5ML UD oral suspension PO SCH ×3 (09:52→22:56)
[2023-04-22] MEDS: venlafaxine XR 75mg capsule (Q24H) PO SCH (09:52)
[2023-04-22] MEDS: amiodarone 200mg tablet PO SCH ×2 (09:52→22:57)
[2023-04-22] MEDS: carVEDilol 3.125mg tablet PO SCH ×2 (11:00→22:57)
[2023-04-22 11:11] VITALS: BP 87/77
[2023-04-22] MEDS: spironolactone 25 MG tablet PO SCH (11:15)
[2023-04-22] MEDS: digoxin 125mcg (0.125mg) tablet PO SCH (13:20)
--- NOTE | 2023-04-22 13:54 | NUR ---
CRITICAL HIGH DIG LEVEL 2.51 CALLED TO dR. Pierce
[2023-04-22 15:15] VITALS: BP 125/73
--- NOTE | 2023-04-22 15:25 | NUR ---
DR. MICHELLE CALLED AND INFORMED OF HYPOTENSION 79/51 AND 96/51. MD WILL COME SEE PT
[2023-04-22] MEDS ORDERED: normal saline 500ml IV soln 500 ML IV ONE (15:40)
[2023-04-22 18:00] VITALS: BP 91/53
--- NOTE | 2023-04-22 18:45 | NUR ---
Patient in room PCU 3024. I have received report from Gee HUERTA and had the opportunity to ask questions and assume patient care.
[2023-04-22 22:00] VITALS: BP 99/52
[2023-04-22] MEDS: atorvastatin 20mg tablet PO SCH (22:57)
[2023-04-22] MEDS: HYDROcodone/acetaminophen 5mg/325mg tablet PO PRN (23:06)
[2023-04-22] MEDS: traZODone 150mg tablet PO SCH (23:44)
[2023-04-23 02:00] VITALS: BP 118/57
[2023-04-23 06:15] VITALS: BP 114/70
--- NOTE | 2023-04-23 06:15 | NUR ---
Patient in room PCU 3024. I have received report from Jayda HUERTA and had the opportunity to ask questions and assume patient care. Pt awake and lab @ bedside. Call light in reach. Addendum: 04/23/23 at 0730 by Philomena Henao RN Amended: Links added.
[2023-04-23 07:17] LABS: BASOPHILS % (AUTO) 0.4 % (0-1); EOSINOPHILS # (AUTO) 0.1 X10'3 (0-0.9); EOSINOPHILS % (AUTO) 1.5 % (0-6); HEMATOCRIT 39.3 % (42.0-52.0); HEMOGLOBIN 12.9 g/dl (14.0-17.9); LYMPHOCYTES # (AUTO) 0.9 X10'3 (1.1-4.8); LYMPHOCYTES % (AUTO) 12.9 % (21-51); MEAN CORPUSCULAR HEMOGLOBIN 30.5 PG (27.0-31.0); MEAN CORPUSCULAR HGB CONC 32.9 g/dL (33.0-36.5); MEAN CORPUSCULAR VOLUME 92.6 FL (78-98); MEAN PLATELET VOLUME 8.5 FL (7.4-10.4); MONOCYTES % (AUTO) 14.4 % (2-12); NEUTROPHILS # (AUTO) 5.1 X10'3 (1.8-7.7); NEUTROPHILS % (AUTO) 70.8 % (42-75); PLATELET COUNT 176 X10'3 (140-440); RED BLOOD COUNT 4.25 X10'6 (4.70-6.10); RED CELL DISTRIBUTION WIDTH 15.3 % (11.5-14.5); WHITE BLOOD COUNT 7.2 X10'3 (4.5-11.0)
[2023-04-23 07:37] LABS: ALANINE AMINOTRANSFERASE 109 U/L (12-78); ALBUMIN/GLOBULIN RATIO 0.6 (1.1-1.5); ALKALINE PHOSPHATASE 163 IU/L (46-116); ANION GAP 7 (8-16); ASPARTATE AMINO TRANSFERASE 84 U/L (10-37); BILIRUBIN,TOTAL 1.1 MG/DL (0.1-1.0); BLOOD UREA NITROGEN 15 MG/DL (7-18); CALCIUM 8.5 MG/DL (8.5-10.1); CHLORIDE 104 MMOL/L (99-107); CREATININE 0.79 MG/DL (0.60-1.10); GLUCOSE 68 MG/DL (70-104); MAGNESIUM 2.1 MG/DL (1.5-2.4); PHOSPHORUS 3.3 MG/DL (2.3-4.5); POTASSIUM 4.2 MMOL/L (3.5-5.1); SODIUM 141 MMOL/L (135-145); TOTAL CARBON DIOXIDE 29.7 MMOL/L (24-32); TOTAL PROTEIN 5.1 G/DL (6.4-8.2); eGFR > 90 ML/MIN
[2023-04-23] MEDS: lactose-reduced food (Ensure Enlive) - 237ml bottle PO SCH ×3 (08:00→18:00)
[2023-04-23] MEDS: K and/or MAG REPLACEMENT MC SCH ×2 (08:00→19:27)
--- NOTE | 2023-04-23 08:15 | NUR ---
Problems reprioritized. Patient report given, questions answered & plan of care reviewed with Philomena HUERTA.
[2023-04-23] MEDS: carVEDilol 3.125mg tablet PO SCH ×2 (08:58→22:51)
[2023-04-23] MEDS: pantoprazole 40mg Tablet.DR PO SCH (08:58)
[2023-04-23] MEDS: apixaban 5mg tablet PO SCH ×2 (08:58→20:21)
[2023-04-23] MEDS: aspirin 81mg tab.chew PO SCH (08:58)
[2023-04-23] MEDS: spironolactone 25 MG tablet PO SCH (08:59)
[2023-04-23] MEDS: lamoTRIgine 25mg tablet PO SCH (09:00)
[2023-04-23] MEDS: lamoTRIgine 100mg tablet PO SCH (09:01)
[2023-04-23] MEDS: venlafaxine XR 75mg capsule (Q24H) PO SCH (09:02)
[2023-04-23] MEDS: EMPAGLIFLOZIN 10 MG TABLET PO SCH (09:02)
[2023-04-23] MEDS: amiodarone 200mg tablet PO SCH ×2 (09:04→20:20)
[2023-04-23] MEDS: nystatin 500,000 unit/5ML UD oral suspension PO SCH ×3 (09:11→20:25)
[2023-04-23 11:00] VITALS: BP 102/58
[2023-04-23] MEDS ORDERED: carVEDilol 3.125mg tablet PO ONE (12:35)
[2023-04-23] MEDS: digoxin 125mcg (0.125mg) tablet PO SCH (12:43)
[2023-04-23 15:00] VITALS: BP 93/60
[2023-04-23 18:00] VITALS: BP 92/41
--- NOTE | 2023-04-23 18:23 | NUR ---
Problems reprioritized. Patient report given, questions answered & plan of care reviewed with Stacy HUERTA.Pt relaxing in bed. Eating Dinner, Call light in reach.. Addendum: 04/23/23 at 1824 by Philomena Henao RN Amended: Links added.
--- NOTE | 2023-04-23 18:25 | NUR ---
Patient in room PCU 3024. I have received report from Philomena HUERTA and had the opportunity to ask questions and assume patient care.
[2023-04-23] MEDS: atorvastatin 20mg tablet PO SCH (20:20)
[2023-04-23] MEDS: HYDROcodone/acetaminophen 5mg/325mg tablet PO PRN (20:22)
[2023-04-23 22:00] VITALS: BP 92/52
[2023-04-23] MEDS: traZODone 150mg tablet PO SCH (22:52)
[2023-04-24 02:00] VITALS: BP 135/77
[2023-04-24 04:34] LABS: BASOPHILS % (AUTO) 0.5 % (0-1); EOSINOPHILS # (AUTO) 0.1 X10'3 (0-0.9); EOSINOPHILS % (AUTO) 1.9 % (0-6); HEMATOCRIT 36.3 % (42.0-52.0); HEMOGLOBIN 11.9 g/dl (14.0-17.9); LYMPHOCYTES # (AUTO) 1.3 X10'3 (1.1-4.8); LYMPHOCYTES % (AUTO) 18.3 % (21-51); MEAN CORPUSCULAR HEMOGLOBIN 30.3 PG (27.0-31.0); MEAN CORPUSCULAR HGB CONC 32.7 g/dL (33.0-36.5); MEAN CORPUSCULAR VOLUME 92.5 FL (78-98); MEAN PLATELET VOLUME 8.6 FL (7.4-10.4); MONOCYTES % (AUTO) 13.5 % (2-12); NEUTROPHILS # (AUTO) 4.7 X10'3 (1.8-7.7); NEUTROPHILS % (AUTO) 65.8 % (42-75); PLATELET COUNT 221 X10'3 (140-440); RED BLOOD COUNT 3.93 X10'6 (4.70-6.10); RED CELL DISTRIBUTION WIDTH 15.4 % (11.5-14.5); WHITE BLOOD COUNT 7.1 X10'3 (4.5-11.0)
[2023-04-24 04:54] LABS: ALANINE AMINOTRANSFERASE 123 U/L (12-78); ALBUMIN 2.1 G/DL (3.4-5.0); ALBUMIN/GLOBULIN RATIO 0.7 (1.1-1.5); ALKALINE PHOSPHATASE 166 IU/L (46-116); ANION GAP 6 (8-16); ASPARTATE AMINO TRANSFERASE 111 U/L (10-37); BILIRUBIN,TOTAL 0.9 MG/DL (0.1-1.0); BLOOD UREA NITROGEN 17 MG/DL (7-18); CALCIUM 8.7 MG/DL (8.5-10.1); CHLORIDE 104 MMOL/L (99-107); CREATININE 0.81 MG/DL (0.60-1.10); GLUCOSE 92 MG/DL (70-104); MAGNESIUM 2.1 MG/DL (1.5-2.4); PHOSPHORUS 3.3 MG/DL (2.3-4.5); POTASSIUM 4.4 MMOL/L (3.5-5.1); SODIUM 140 MMOL/L (135-145); TOTAL PROTEIN 5.1 G/DL (6.4-8.2); eGFR > 90 ML/MIN
[2023-04-24 06:00] VITALS: BP 110/62
--- NOTE | 2023-04-24 06:41 | NUR ---
Problems reprioritized. Patient report given, questions answered & plan of care reviewed with Edna HUERTA.
--- NOTE | 2023-04-24 06:47 | NUR ---
I have received report from DEANNA Kumar and had the opportunity to ask questions and assume patient care. No acute distress at this time.
[2023-04-24] MEDS: K and/or MAG REPLACEMENT MC SCH (08:00)
[2023-04-24] MEDS: digoxin 125mcg (0.125mg) tablet PO SCH (08:27)
[2023-04-24] MEDS: amiodarone 200mg tablet PO SCH (08:27)
[2023-04-24] MEDS: aspirin 81mg tab.chew PO SCH (08:28)
[2023-04-24] MEDS: lamoTRIgine 100mg tablet PO SCH (08:28)
[2023-04-24] MEDS: carVEDilol 3.125mg tablet PO SCH (08:28)
[2023-04-24] MEDS: EMPAGLIFLOZIN 10 MG TABLET PO SCH (08:28)
[2023-04-24] MEDS: apixaban 5mg tablet PO SCH (08:28)
[2023-04-24] MEDS: venlafaxine XR 75mg capsule (Q24H) PO SCH (08:34)
[2023-04-24] MEDS: lamoTRIgine 25mg tablet PO SCH (08:34)
[2023-04-24] MEDS: spironolactone 25 MG tablet PO SCH (08:34)
[2023-04-24] MEDS: nystatin 500,000 unit/5ML UD oral suspension PO SCH ×2 (08:34→12:32)
[2023-04-24] MEDS: pantoprazole 40mg Tablet.DR PO SCH (08:35)
[2023-04-24] MEDS: normal saline 1000ml 1,000 ML IV SCH (08:39)
[2023-04-24] MEDS: lactose-reduced food (Ensure Enlive) - 237ml bottle PO SCH ×2 (08:41→12:31)
[2023-04-24 10:13] VITALS: BP 84/54
--- NOTE | 2023-04-24 10:48 | NUR ---
Patient was hypotensive w/ systolic running in the 70's and diastolic running in the 40's relayed by the septic tank service technician. Retook the patient's BP manually: 84/54 mmHg, pt is a-symptomatic and is holding a conversation. Spoke w/ the resident whom is working under the hospitalist and noted they will adjust the medication accordingly. Does not want any adjustment to fluids. Will CTM pt.
[2023-04-24 12:00] VITALS: BP_SYST 102; BP_SYST 96; BP_DIAS 55; BP_DIAS 62
[2023-04-24] MEDS ORDERED: digoxin 250mcg/ml 2ml ampule IV ONE (13:50)
--- NOTE | 2023-04-24 14:17 | NUR ---
AGREE WIT TRANSIT MIXER OPERATOR AM ASSESSMENT.
[2023-04-24] MEDS ORDERED: APIX5TAB3 PO (15:40)
[2023-04-24] MEDS ORDERED: SPIR25TA PO (15:40)
[2023-04-24] MEDS ORDERED: LAN0.125T PO (15:40)
[2023-04-24] MEDS ORDERED: LACT-237 PO (15:40)
[2023-04-24] MEDS ORDERED: EMPA10TA PO (15:40)
[2023-04-24] MEDS ORDERED: ALBU6.7H14 INH (15:40)
[2023-04-24] MEDS ORDERED: PANT40TA54 PO (15:40)
[2023-04-24] MEDS ORDERED: AMI200T PO (15:40)
[2023-04-24] MEDS ORDERED: COR3.125T PO (15:40)
--- NOTE | 2023-04-24 16:45 | NUR ---
Patient discharged w/ instructions on proceeding w/ the providers orders. Patient is stable for baseline, VS WNL, went over all instructions for the patients medications. IV d/c'd from the right fore arm, cannula intact. All belongings sent w/ patient that where present on the admission assessment. Ambulated downstairs w/ family friend and a staff member. Patient was in no acute distress at this time. Rossi handout provided for pt/
--- NOTE | 2023-04-24 18:28 | NUR ---
LVM in re: for family there are medications that need to be picked up in the pharmacy. Forgot to take them when d/c'd.
[2023-04-25] MEDS ORDERED: amiodarone 200mg tablet PO SCH (08:00)
== END 2023-04-24 16:45 | disposition home health service (06) | DRG 193 ==
LOC: ER 21:30 → ED HOLD 04-16 00:09 → PCU 3S 04-16 02:00
PROVIDERS: ADMIT Family Medicine; ATTEND Family Medicine
PROC: CB121ZZ Planar Nuclear Medicine Imaging of Lungs and Bronchi using Technetium 99m (Tc-99m) (ICD-10-PCS; principal; 2023-04-17)
PROC: 0W9B3ZZ Drainage of Left Pleural Cavity, Percutaneous Approach (ICD-10-PCS; 2023-04-20)
PROC: 0W993ZX Drainage of Right Pleural Cavity, Percutaneous Approach, Diagnostic (ICD-10-PCS; 2023-04-20)
DX: J18.9 Pneumonia, unspecified organism (principal); I21.A1 Myocardial infarction type 2; J96.01 Acute respiratory failure with hypoxia; I42.0 Dilated cardiomyopathy; N17.9 Acute kidney failure, unspecified; R18.8 Other ascites; R65.10 Systemic inflammatory response syndrome (SIRS) of non-infectious origin without acute organ dysfunction; J91.8 Pleural effusion in other conditions classified elsewhere; I16.9 Hypertensive crisis, unspecified; I50.22 Chronic systolic (congestive) heart failure; J98.11 Atelectasis; E80.6 Other disorders of bilirubin metabolism; E86.0 Dehydration; R54 Age-related physical debility; I08.1 Rheumatic disorders of both mitral and tricuspid valves; F41.9 Anxiety disorder, unspecified; F32.A Depression, unspecified; I95.9 Hypotension, unspecified; K73.9 Chronic hepatitis, unspecified; K76.0 Fatty (change of) liver, not elsewhere classified; R74.01 Elevation of levels of liver transaminase levels; R19.5 Other fecal abnormalities; R79.89 Other specified abnormal findings of blood chemistry; D69.6 Thrombocytopenia, unspecified; E78.5 Hyperlipidemia, unspecified; I48.91 Unspecified atrial fibrillation; N18.9 Chronic kidney disease, unspecified; Z79.01 Long term (current) use of anticoagulants; Z79.82 Long term (current) use of aspirin; Z79.899 Other long term (current) drug therapy; Z28.21 Immunization not carried out because of patient refusal
CPT/HCPCS: 32555; 36415; 36600; 71045; 71250; 74176; 76604; 78582; 80053; 80061; 80162; 81001; 82550; 82803; 82945; 82948; 83036; 83605; 83615; 83690; 83735; 83880; 83930; 83986; 84100; 84145; 84157; 84443; 84484; 85008; 85018; 85025; 85379; 85610; 85730; 87040; 87070; 87075; 87081; 89051; 93005; 93306; 94760; 97110; 97116; 97161; 97530; 99285; A4314; A5200; A6258; A9539; A9540; C1729; G0378; J0282; J0456; J0696; J1160; J1644; J1940; J3490; J7030; J7040